=== PATIENT | female | born 1980 | race Two or more races ===

== ENCOUNTER → 2020-11-18 | Outpatient (CLI) | payer OTHER ==
--- NOTE | 2020-11-23 15:44 | SLEEPHOME ---
DATE: 11/18/2020 ORDERED BY: ELIZABETH Severino Diagnostic home sleep testing was performed due to concern for the obstructive sleep apnea syndrome. For testing, a nocturnal T3 respiratory monitoring device was used. Continuous record was made of pulse, oxygen saturation, air flow, chest and abdominal strain, and body position. Nine hours and 59 minutes of data were reviewed. There were 7 hours and 4 minutes marked as time in bed. During the interval marked time in bed, there were 91 respiratory events identified of 10 seconds in duration or greater for a respiratory event index of 12.9. The events were primarily obstructive. Baseline pulse rate was 79 beats per minute. Pulse rate ranged from 44 to 176. Baseline saturation was 97%. Saturations fell as low as 80%. Testing was performed in both the supine and nonsupine positions. IMPRESSION: Abnormal home sleep testing with repetitive respiratory events and oxygen desaturations to 80% with a respiratory event index of 12.9 is consistent with the obstructive sleep apnea syndrome. RECOMMENDATION: The patient should be encouraged to undergo a referral for a formal sleep evaluation.
== END ==
LOC: M SLEEP HO 07:39
PROVIDERS: ATTEND Physician Assistant
DX: G47.10 Hypersomnia, unspecified (principal)

== ENCOUNTER → 2022-01-09 | Outpatient (CLI) | payer OTHER ==
[2022-01-09 08:34] LABS: BASO # 0.1 10^3/uL (0.0-0.2); BASO % 0.9 % (0.0-1.0); EOS # 0.2 10^3/uL (0.0-0.5); EOS % 1.8 % (0.0-3.0); HEMOGLOBIN 14.3 g/dl (12.0-15.5); LYMPH % 28.8 % (24.0-44.0); MEAN CORPUSCULAR HEMOGLOBIN 30.7 pg (27.0-33.0); MEAN CORPUSCULAR HGB CONC 33.3 g/dl (32.0-36.5); MEAN CORPUSCULAR VOLUME 92.3 fl (80.0-96.0); MONO # 0.5 10^3/uL (0.0-0.8); MONO % 5.1 % (2.0-8.0); NEUTROPHILS # 6.5 10^3/uL (1.5-8.5); NEUTROPHILS % 62.8 % (36.0-66.0); PLATELET COUNT, AUTOMATED 299 10^3/uL (150-450); RED BLOOD COUNT 4.66 10^6/uL (4.00-5.40); WHITE BLOOD COUNT 10.4 10^3/uL (4.0-10.0)
[2022-01-09 09:01] LABS: HEMOGLOBIN A1c 5.7 %
[2022-01-09 09:06] LABS: CREATININE, URINE 83.8 MG/DL; MALB URINE SIEMENS 7.8 MG/L; MAU/CREAT RATIO 9.3 MCG/MG (0.0-30.0)
[2022-01-09 09:07] LABS: ALBUMIN 3.6 GM/DL (3.2-5.2); ALT/SGPT 25 U/L (12-78); BILIRUBIN,TOTAL 0.4 MG/DL (0.2-1.0); BLOOD UREA NITROGEN 11 MG/DL (7-18); CALCIUM LEVEL 9.3 MG/DL (8.5-10.1); CARBON DIOXIDE LEVEL 26 MEQ/L (21-32); CHLORIDE LEVEL 108 MEQ/L (98-107); CHOLESTEROL LEVEL 231 MG/DL (<200); CHOLESTEROL RISK RATIO 5.775 (<5); CREATININE FOR GFR 0.73 MG/DL (0.55-1.30); FERRITIN 173 NG/ML (8-252); GLOMERULAR FILTRATION RATE > 60.0 (>58); GLUCOSE, FASTING 94 MG/DL (70-100); HDL CHOLESTEROL 40 MG/DL (>40); LDL CHOLESTEROL 151 MG/DL (<100); NON-HDL-C 191 MG/DL; POTASSIUM SERUM 4.4 MEQ/L (3.5-5.1); SODIUM LEVEL 140 MEQ/L (136-145); TOTAL PROTEIN 6.9 GM/DL (6.4-8.2); TRIGLYCERIDES LEVEL 201 MG/DL (<150)
[2022-01-09 09:40] LABS: FOLATE > 24.0 NG/ML (>5.4); TOTAL 25(OH) VITAMIN D 29.6 NG/ML (30.0-100.0); VITAMIN B12 LEVEL 284 PG/ML (247-911)
== END ==
LOC: M LAB 07:21
PROVIDERS: ATTEND Physician Assistant
DX: I10 Essential (primary) hypertension (principal); L65.9 Nonscarring hair loss, unspecified; Z68.43 Body mass index [BMI] 50.0-59.9, adult

== ENCOUNTER → 2022-02-09 | Outpatient (CLI) | payer OTHER | LOC: M WHC 15:17 | PROVIDERS: ATTEND Physician Assistant | DX: Z12.31 Encounter for screening mammogram for malignant neoplasm of breast (principal) ==

== ENCOUNTER → 2022-04-13 | Outpatient (CLI) | payer OTHER | LOC: M SLEEP HO 12:25 | PROVIDERS: ATTEND Nurse Practitioner Family | DX: G47.33 Obstructive sleep apnea (adult) (pediatric) (principal) ==

== ENCOUNTER → 2022-11-16 | Outpatient (CLI) | payer OTHER | LOC: M SLEEP 20:00 | PROVIDERS: ATTEND Nurse Practitioner Family | DX: G47.33 Obstructive sleep apnea (adult) (pediatric) (principal) ==

== ENCOUNTER → 2023-02-09 | Outpatient (CLI) | payer OTHER ==
[2023-02-09 08:15] LABS: BASO # 0.1 10^3/uL (0.0-0.2); BASO % 1.2 % (0.0-1.0); EOS # 0.2 10^3/uL (0.0-0.5); EOS % 2.2 % (0.0-3.0); HEMATOCRIT 42.1 % (36.0-47.0); LYMPH # 3.3 10^3/uL (1.5-5.0); LYMPH % 37.6 % (24.0-44.0); MEAN CORPUSCULAR HEMOGLOBIN 30.4 pg (27.0-33.0); MEAN CORPUSCULAR HGB CONC 33.3 g/dl (32.0-36.5); MEAN CORPUSCULAR VOLUME 91.5 fl (80.0-96.0); MONO # 0.5 10^3/uL (0.0-0.8); MONO % 5.3 % (2.0-8.0); NEUTROPHILS # 4.6 10^3/uL (1.5-8.5); NEUTROPHILS % 53.1 % (36.0-66.0); PLATELET COUNT, AUTOMATED 300 10^3/uL (150-450); WHITE BLOOD COUNT 8.7 10^3/uL (4.0-10.0)
[2023-02-09 08:36] LABS: HEMOGLOBIN A1c 5.3 % (4.0-6.0)
[2023-02-09 08:45] LABS: ALBUMIN 4.1 G/DL (3.2-5.2); ALKALINE PHOSPHATASE 66 U/L (46-116); ALT/SGPT 17 U/L (7.0-40); AST/SGOT 10 U/L (<34); BILIRUBIN,TOTAL 0.4 MG/DL (0.3-1.2); BLOOD UREA NITROGEN 18 MG/DL (9-23); CALCIUM LEVEL 9.1 MG/DL (8.5-10.1); CARBON DIOXIDE LEVEL 24 MMOL/L (20-31); CHLORIDE LEVEL 107 MMOL/L (98-107); CHOLESTEROL LEVEL 213 MG/DL (<200); CHOLESTEROL RISK RATIO 4.91 (<5); CREATININE FOR GFR 0.77 MG/DL (0.55-1.30); GLOMERULAR FILTRATION RATE > 60.0 (>58); GLUCOSE, FASTING 101 MG/DL (60-100); HDL CHOLESTEROL 43.3 MG/DL (>40); LDL CHOLESTEROL 144.1 MG/DL (<100); NON-HDL-C 169.7 MG/DL; POTASSIUM SERUM 4.3 MMOL/L (3.5-5.1); SODIUM LEVEL 139 MMOL/L (136-145); TOTAL PROTEIN 6.8 G/DL (5.7-8.2); TRIGLYCERIDES LEVEL 128 MG/DL (<150)
[2023-02-09 08:47] LABS: THYROID STIMULATING HORMONE 2.318 uIU/ML (0.55-4.78)
[2023-02-09 08:48] LABS: FREE T4 1.11 NG/DL (0.89-1.76)
== END ==
LOC: M LAB 07:43
PROVIDERS: ATTEND Physician Assistant
DX: I10 Essential (primary) hypertension (principal); E66.01 Morbid (severe) obesity due to excess calories; Z68.42 Body mass index [BMI] 45.0-49.9, adult

== ENCOUNTER 2024-10-23 10:27 | Emergency (ER) | payer OTHER ==
[~2024-10-23] VITALS: Ht 170.2 cm; Wt 116.2 kg
[2024-10-23] MEDS ORDERED: LISI2.5T9 PO (10:39)
[2024-10-23 11:39] LABS: BASO # 0.1 10^3/uL (0.0-0.2); BASO % 0.9 % (0.0-1.0); EOS # 0.2 10^3/uL (0.0-0.5); EOS % 1.6 % (0.0-3.0); HEMATOCRIT 42.3 % (36.0-47.0); HEMOGLOBIN 14.1 g/dl (12.0-15.5); LYMPH # 3.1 10^3/uL (1.5-5.0); LYMPH % 30.7 % (24.0-44.0); MEAN CORPUSCULAR HEMOGLOBIN 30.9 pg (27.0-33.0); MEAN CORPUSCULAR HGB CONC 33.3 g/dl (32.0-36.5); MEAN CORPUSCULAR VOLUME 92.6 fl (80.0-96.0); MONO # 0.5 10^3/uL (0.0-0.8); MONO % 4.9 % (2.0-8.0); NEUTROPHILS # 6.3 10^3/uL (1.5-8.5); NEUTROPHILS % 61.3 % (36.0-66.0); PLATELET COUNT, AUTOMATED 326 10^3/uL (150-450); RED BLOOD COUNT 4.57 10^6/uL (4.00-5.40); WHITE BLOOD COUNT 10.2 10^3/uL (4.0-10.0)
[2024-10-23 12:05] LABS: ALBUMIN 3.7 G/DL (3.2-5.2); ALKALINE PHOSPHATASE 69 U/L (35-104); ALT/SGPT 28 U/L (7.0-40); AST/SGOT 17 U/L (<34); BILIRUBIN,DIRECT < 0.1 MG/DL (<0.4); BILIRUBIN,TOTAL 0.4 MG/DL (0.3-1.2); BLOOD UREA NITROGEN 10 MG/DL (9-23); CALCIUM LEVEL 9.5 MG/DL (8.5-10.1); CARBON DIOXIDE LEVEL 27 MMOL/L (20-31); CHLORIDE LEVEL 107 MMOL/L (98-107); GLOMERULAR FILTRATION RATE > 60.0 (>58); GLUCOSE, FASTING 103 MG/DL (60-100); POTASSIUM SERUM 4.3 MMOL/L (3.5-5.1); SODIUM LEVEL 142 MMOL/L (136-145); TOTAL PROTEIN 7.1 G/DL (5.7-8.2)
[2024-10-23] MEDS ORDERED: ISOVUE-370 76% 100ML VIAL As Ordered ONE (12:28)
[2024-10-23 14:00] VITALS: BP 148/86
[2024-10-23 14:15] VITALS: TEMP 98.1; O2SAT 96
== END 2024-10-23 14:27 | disposition home or self-care (01) ==
LOC: M ED 10:27
DX: R07.9 Chest pain, unspecified (principal); I10 Essential (primary) hypertension; E78.5 Hyperlipidemia, unspecified; F10.10 Alcohol abuse, uncomplicated; Z79.899 Other long term (current) drug therapy
CPT/HCPCS: 36415; 71045; 71275; 80048; 80076; 84484; 85025; 93005; 99284; Q9967